=== PATIENT | male | born 2005 | race Caucasian/White ===

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

== ENCOUNTER 2025-03-14 20:14 | Emergency (ER) | payer MEDICAID ==
[~2025-03-14] VITALS: Ht 172.7 cm; Wt 68.3 kg
[2025-03-14] MEDS: LIDOcaine 1% W/epiNEPHrine 1:100,000 20ml vial SQ ONE (21:00)
[2025-03-14] MEDS ORDERED: DOXY-460 PO (21:08)
[2025-03-14 21:24] VITALS: BP 111/62; PULSE 72; RESP 16; TEMP 98.6; O2SAT 99
== END 2025-03-14 21:25 | disposition home or self-care (01) ==
LOC: ER 20:14
DX: L02.211 Cutaneous abscess of abdominal wall (principal); Z88.0 Allergy status to penicillin
CPT/HCPCS: 10060; 99283; J3490; A4615; A6449

== ENCOUNTER 2025-04-12 18:13 | Emergency (ER) | payer MEDICAID ==
[~2025-04-12] VITALS: Ht 172.7 cm; Wt 76.7 kg
[2025-04-12 18:17] VITALS: BP 121/71; PULSE 83; RESP 16; TEMP 98.7; O2SAT 99
[2025-04-13] MEDS ORDERED: CEPH-585 PO (10:01)
[2025-04-13] MEDS ORDERED: SULF1TAB48 PO (10:01)
== END 2025-04-12 19:18 | disposition left against medical advice (07) ==
LOC: ER 18:14
DX: L02.412 Cutaneous abscess of left axilla (principal); Z88.0 Allergy status to penicillin; Z53.21 Procedure and treatment not carried out due to patient leaving prior to being seen by health care provider

== ENCOUNTER 2025-04-13 08:52 | Emergency (ER) | payer MEDICAID ==
[~2025-04-13] VITALS: Ht 170.2 cm; Wt 77.8 kg
[2025-04-13 08:58] VITALS: TEMP 98
--- NOTE | 2025-04-13 09:41 | Physician Documentation ---
History of Present Illness ~ Chief Complaint: Abscess Stated Complaint: ABSCESS Time Seen by MD: 09:17 HPI Patient returns with a complaint of an abscess in his left armpit which has increased in pain and swelling of the last 3-4 days. Denies any fevers. Day of Onset: April 13, 2025 Tetanus Within 5 Years: No Medication Reconciliation Allergies: Coded Allergies: amoxicillin (Verified Allergy, Unknown, 04/13/25) Scheduled Cephalexin*Monohydrate* (Keflex*), 1 CAP PO QID Sulfamethoxazole/Trimethoprim (Bactrim 400-80 Mg Tablet), 1 TAB PO Q12H Physical Exam Vital Signs: Temperature: 98.0, Source: Temporal, Heart Rate: 89, Respiratory Rate: 18, BP: 120/79, Pulse Oximetry: 99, Weight: 77.850 Physical Exam General: Alert, no apparent distress. HEENT: PERRL, EOMI, no injection, moist mucous membranes. Extremities: Normal range of motion, no deformity. left arm pit 2x.3 cm abscess Psychiatric: Normal mood and affect. Skin: Normal color, warm and dry. No edema, no ecchymosis. Procedures I & D Procedure : Anesthesia: Lidocaine Blade Size: 11 Prep/Supplies: dressing applied Incision: pus drained Tolerated Procedure Well?: yes, no complications Progress Results/Orders Results/Orders Orders - IVÁN CIFUENTES NP Laceration/I&D Tray Set Up (04/13/25 ) General Nursing Order (04/13/25 ) Culture Body Fluid Order (04/13/25 ) Cult (Aer) Routine C&S+Gram St (04/13/25 10:06) Completed Orders - IVÁN CIFUENTES NP Lidocaine 1% W/Epi 1:100,000 (Xylocaine (04/13/25 09:40) Vital Signs 04/13/25 04/13/25 04/13/25 08:58 10:08 10:08 Temp 98.0 Pulse 89 89 89 Resp 18 15 15 B/P (MAP) 120/79 120/79 (93) 120/79 Pulse Ox 99 99 99 Microbiology Date/Time Source Procedure Growth Status 04/13/25 10:06 Arm Left Wound Routine Culture - Preliminary Resulted Medical Decision Making Findings The patient tolerated I and D well there was gross purulent discharge evident after I made an incision. I did culture the wound as this has been a recurrent issue for him. Place him on antibiotics with the MRSA coverage. Differential Dx:Considerations: Include: Abscess, Bacteremia, Cellulitis, Erysipelas, Felon, Gas gangrene, Hidrademitis suppurativa, Impetigo, Lymphan gitis, Osteromyelitis, Paronychia, Septicemia, Other Departure Disposition: HOME / SELF CARE / HOMELESS Impression: Primary Impression: Abscess Condition: Stable Discharge Instructions: Abscess, Care After Referrals: NO PRIMARY CARE PROVIDER (PCP) Prescriptions Cephalexin*Monohydrate* (Keflex*) 500 Mg Capsule 1 CAP PO QID, #40 CAP Prov: IVÁN CIFUENTES NP 04/13/25 Sulfamethoxazole/Trimethoprim (Bactrim 400-80 Mg Tablet) 400 Mg-80 Mg Tablet 1 TAB PO Q12H for 7 Days, #14 TAB Prov: IVÁN CIFUENTES PERSONNEL COUNSELOR 04/13/25 Education Educated: Patient Educated regarding: diagnosis Signature Scribe Signature: v Attestation: The note accurately reflects work and decisions made by me.Iván Scott NP 04/13/25 17:49 IVÁN CIFUENTES NP April 13, 2025 09:41
[2025-04-13] MEDS: LIDOcaine 1% W/epiNEPHrine 1:100,000 20ml vial SQ ONE (09:55)
[2025-04-13] MEDS ORDERED: SULF1TAB48 PO (10:01)
[2025-04-13] MEDS ORDERED: CEPH-585 PO (10:01)
[2025-04-13 10:08] VITALS: BP 120/79; PULSE 89; RESP 15; O2SAT 99
== END 2025-04-13 10:10 | disposition home or self-care (01) ==
LOC: ER 08:53
DX: L02.412 Cutaneous abscess of left axilla (principal); Z88.1 Allergy status to other antibiotic agents; Z79.899 Other long term (current) drug therapy
CPT/HCPCS: 10060; 87070; 87077; 87186; 99283

== ENCOUNTER 2025-05-20 16:35 | Emergency (ER) | payer MEDICAID ==
[~2025-05-20] VITALS: Ht 170.2 cm; Wt 74.7 kg
[~2025-05-20 16:35] MED LIST: CEPH-585 PO
[2025-05-20 16:37] VITALS: BP 128/83; PULSE 98; RESP 16; O2SAT 98
--- NOTE | 2025-05-20 18:14 | Physician Documentation ---
History of Present Illness ~ Chief Complaint: Numbness Stated Complaint: NO FEELING IN FINGERS Time Seen by MD: 17:45 Source: patient Mode of Arrival: POV Exam Limitations: no limitations HPI 20-year-old right-handed male with chief complaint tingling in his right hand and forearm which has been present since he woke up about a week ago. He plays a lot of video games as well but states he has not been playing more than usual and he is just concerned that his hand feels asleep. 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 He states just when I tap on my fingers it they do not feel normal. Denies clumsiness of his hand. Denies neck pain. No swelling or redness. Medication Reconciliation Allergies: Coded Allergies: amoxicillin (Verified Allergy, Unknown, 04/13/25) Scheduled Cephalexin*Monohydrate* (Keflex*), 1 CAP PO QID Past Medical History Past Medical History: No Pertinent History Review of Systems All Other Systems at this time: Reviewed and Negative Physical Exam Vital Signs: Temperature: 98.2, Source: Oral, Heart Rate: 98, Respiratory Rate: 16, BP: 128/83, Pulse Oximetry: 98, Weight: 74.700 Oxygen Flow Rate: 0 General Appearance General Appearance: Alert, WD/WN. NAD. HEENT: NCAT, PERRL, EOMI. Neck: Supple, trachea midline. Cardiovascular: RRR. No m/r/g. Radial pulses 2+. Lungs: CTAB. Breathing unlabored Extremities: Normal inspection. No edema. 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 No tenderness over spinous processes full active range motion of cervical spine. Skin: Warm/dry, normal color Neurological: Alert and oriented x4, normal gait. Psychiatric: Affect congruent with mood. Progress Results/Orders Reviewed/noted all lab results: Yes Results/Orders Vital Signs 05/20/25 05/20/25 16:37 18:18 Temp 98.2 98.2 Pulse 98 Resp 16 B/P (MAP) 128/83 Pulse Ox 98 O2 Flow Rate 0 Medical Decision Making Differential Dx:Considerations: Include: Soliz's Palsey, CVA, Delirium tremens, DKA, Drug overdose, Electrolyte imbalance, Encephalopathy, Hypoxemia, Hypoglycemia, Mass lesion, Respiratory failure, Subarachnoid Hemorrhage, TIA Additional Information Patient has only sensory complaints no motor deficits suspect that this is either a Friday night palsy type of situation or cubital tunnel with carpal tunnel given the video game playing history. Patient has no signs or symptoms to suggest this is cervical etiology nor signs or symptoms to suggest this is vascular Departure Time of Disposition: 18:44 Disposition: 01 HOME / SELF CARE / HOMELESS Impression: Primary Impression: Numbness Condition: Stable Discharge Instructions: Cubital Tunnel Syndrome Additional Instructions: YOUR SYMPTOMS ARE CONSISTENT WITH CUBITAL AND CARPAL SYNDROME LIKELY CAUSED BY PROLONGED ELBOW ELBOW FLEXION AND REPETITIVE ACTIONS AT WRIST FROM VIDEO GAMES TO CONFIRM YOUR PRIMARY CARE PROVIDER NEEDS TO ORDER AN EMG STUDY Referrals: NO PRIMARY CARE PROVIDER (PCP) Education Educated: Patient Educated regarding: diagnosis, treatment, need for follow up Signature Scribe Signature: x Attestation: BRIDGER Tillman May 20, 2025 18:14
[2025-05-20 18:18] VITALS: TEMP 98.2
== END 2025-05-20 18:20 | disposition home or self-care (01) ==
LOC: ER 16:36
DX: R20.2 Paresthesia of skin (principal); Z88.1 Allergy status to other antibiotic agents
CPT/HCPCS: 99281; 99282

== ENCOUNTER 2025-08-31 14:45 | Emergency (ER) | payer MEDICAID ==
[~2025-08-31] VITALS: Ht 167.6 cm; Wt 72.7 kg
[2025-08-31 14:48] VITALS: BP 128/76; PULSE 83; RESP 18; TEMP 98; O2SAT 98
--- NOTE | 2025-08-31 15:02 | Physician Documentation ---
History of Present Illness ~ Chief Complaint: Laceration Stated Complaint: FINGER LAC Time Seen by MD: 15:00 HPI This is a 20-year-old male who presents with a shallow laceration to his right thumb caused by a filet knife. Patient reports unknown last Tdap. Tetanus Within 5 Years: No Medication Reconciliation Allergies: Coded Allergies: amoxicillin (Verified Allergy, Unknown, 04/13/25) Scheduled Cephalexin*Monohydrate* (Keflex*), 1 CAP PO QID Past Medical History Past Medical History: No Pertinent History Review of Systems ROS As stated above in the HPI, otherwise all systems are reviewed and negative. Physical Exam Vital Signs: Temperature: 98.0, Source: Temporal, Heart Rate: 83, Respiratory Rate: 18, BP: 128/76, Pulse Oximetry: 98, Weight: 72.700 Oxygen Flow Rate: 0 Physical Exam VITALS: Reviewed and as above. GENERAL: Alert, nontoxic appearing, no apparent distress. RESPIRATORY: No increased work of breathing, no respiratory distress, speaking in full clear sentences SKIN: Skin of medial right thumb 1 cm very shallow laceration, approximated without intervention, no active bleeding Progress Results/Orders Results/Orders Vital Signs 08/31/25 14:48 Temp 98.0 Pulse 83 Resp 18 B/P (MAP) 128/76 Pulse Ox 98 O2 Flow Rate 0 Medical Decision Making Findings MSE performed in triage and patient returned to ED lobby by nursing staff to await available ED room. Patient appears to have eloped from lobby. Differential Dx:Considerations: Include: Abrasion, Avulsion, Contusion, Laceration, Fracture, Hematoma, Neurovascular injury, Retained foreign body Departure Disposition: LEFT AWOL/ELOPED Impression: Primary Impression: Laceration Referrals: NO PRIMARY CARE PROVIDER (PCP) Signature Scribe Signature: No scribe Attestation: The note accurately reflects work and decisions made by me.MARYLIN Martin 09/01/25 12:32 ELSY RIOS Aug 31, 2025 15:02 FRANTZ STOLL MD Sep 02, 2025 08:24
[2025-08-31] MEDS ORDERED: TETanus/Pertussis (Acell)/Diphther VAC/PF (Tdap-Adult) 0.5ml syringe IMVAC ONE (15:05)
== END 2025-08-31 16:48 | disposition left against medical advice (07) ==
LOC: ER 14:46
DX: S61.011A Laceration without foreign body of right thumb without damage to nail, initial encounter (principal); Z88.1 Allergy status to other antibiotic agents; W26.0XXA Contact with knife, initial encounter; Y93.89 Activity, other specified; Y92.89 Other specified places as the place of occurrence of the external cause; Y99.8 Other external cause status
CPT/HCPCS: 99282